=== PATIENT | female | born 1965 | race Caucasian/White ===

== ENCOUNTER 2016-11-10 02:46 | Emergency (ER) | payer OTHER ==
[2016-11-10] MEDS ORDERED: RX INFO: IV CONTRAST WAS GIVEN 1 EACH MISC MISCELLANE PRN (02:48)
[2016-11-10] MEDS ORDERED: SODIUM CHLORIDE 0.9% 1,000 ML IV STA (02:48)
[2016-11-10 03:07] LABS: Glucose,Whole Blood 143 mg/dL (75-99)
[2016-11-10 03:19] LABS: Basophils % (A) 0 %; CH 28.6; CHCM 33.6; Eosinophils # (A) 0.1 k/uL (0-0.7); Eosinophils % (A) 1 %; HCT 32.6 % (34.0-46.0); Luc # (Auto) 0.28; Luc % (Auto) 2; Lymphocytes # (A) 1.3 k/uL (1.0-4.8); Lymphocytes % (A) 10 %; MCH 28.7 pg (25.0-35.0); MCHC 33.6 g/dL (31.0-37.0); MCV 85.4 fL (80.0-100.0); Mean Platelet Volume 6.4; Monocytes # (A) 0.7 k/uL (0-1.0); Monocytes % (A) 5 %; Neutrophils # (A) 11.2 k/uL (1.3-7.7); Neutrophils % (A) 82 %; RBC 3.82 m/uL (3.80-5.40); RDW 13.9 % (11.5-15.5); WBC 13.7 k/uL (3.8-10.6); WBC (Perox) 14.05
[2016-11-10] MEDS ORDERED: ONDANSETRON 4 MG/2 ML VIAL IVP STA ×2 (03:22→04:00)
--- NOTE | 2016-11-10 03:23 | CT ---
EXAM: CT Head Without Intravenous Contrast. CLINICAL HISTORY: Neurological deficits. TECHNIQUE: Axial computed tomography images of the head/brain without intravenous contrast. Coronal and sagittal reformations provided. DOSE INFORMATION: CTDI is 60.30 mGy and DLP is 1217.10 mGy-cm. This CT exam was performed using one or more of the following dose reduction techniques: automated exposure control, adjustment of the mA and/or kV according to patient size, and/or use of iterative reconstruction technique. COMPARISON: No relevant prior studies available. FINDINGS: Brain: No acute intracranial hemorrhage. No evidence of acute territorial infarct. No significant white matter disease. No edema. No mass effect or midline shift. Ventricles: Unremarkable. No ventriculomegaly. Bones/joints: Unremarkable. No acute fracture. Soft tissues: Unremarkable. Sinuses: Unremarkable as visualized. No acute sinusitis. Mastoid air cells: Unremarkable as visualized. No mastoid effusion. IMPRESSION: No evidence of acute intracranial abnormality. Specifically, no acute intracranial hemorrhage or CT evidence of acute territorial infarct.
[2016-11-10 03:30] VITALS: TEMP 97.4
[2016-11-10 03:31] LABS: INR 1.1 (<1.1); Prothrombin Time 11.4 sec (9.0-12.0)
[2016-11-10 03:33] LABS: ALT 31 U/L (9-52); AST 34 U/L (14-36); Alkaline Phosphatase 76 U/L (38-126); Anion Gap 9 mmol/L; Blood Urea Nitrogen 17 mg/dL (7-17); Carbon Dioxide 24 mmol/L (22-30); Chloride 104 mmol/L (98-107); Glucose 148 mg/dL (74-99); Non-African American GFR(MDRD) >60 (>60 ml/min/1.73 sqM); Sodium 137 mmol/L (137-145); Total Bilirubin 0.5 mg/dL (0.2-1.3); Total Protein 6.5 g/dL (6.3-8.2)
[2016-11-10 03:36] LABS: Creatine Kinase 98 U/L (30-135)
--- NOTE | 2016-11-10 03:40 | CT ---
EXAM: CT Angiography Head With Intravenous Contrast. CLINICAL HISTORY: Neurological deficits. TECHNIQUE: Axial computed tomographic angiography images of the head with intravenous contrast using CT angiography protocol. MIP reconstructed images were created and reviewed. Coronal and sagittal reformatted images were created and reviewed. DOSE INFORMATION: CTDI of 7.10, 70.20, 7.30 mGy and DLP of 313.80 mGy-cm (values for carotid CTA examination). This CT exam was performed using one or more of the following dose reduction techniques: automated exposure control, adjustment of the mA and/or kV according to patient size, and/or use of iterative reconstruction technique. COMPARISON: No relevant prior studies available. FINDINGS: Right internal carotid artery: Intracranial segment of the right ICA is patent with no significant stenosis. No aneurysm. Right anterior cerebral artery: Unremarkable. No occlusion or significant stenosis. No aneurysm. Right middle cerebral artery: Unremarkable. No occlusion or significant stenosis. No aneurysm. Right posterior cerebral artery: Unremarkable. No occlusion or significant stenosis. No aneurysm. Right vertebral artery: Unremarkable as visualized. Right vertebral artery is dominant and contributes to the basilar artery. Left internal carotid artery: Intracranial segment of the left ICA is patent with no significant stenosis. No aneurysm. Left anterior cerebral artery: Unremarkable. No occlusion or significant stenosis. No aneurysm. Left middle cerebral artery: Unremarkable. No occlusion or significant stenosis. No aneurysm. Left posterior cerebral artery: Unremarkable. No occlusion or significant stenosis. No aneurysm. Left vertebral artery: Small caliber left vertebral artery. Basilar artery: Unremarkable. No occlusion or significant stenosis. No aneurysm. IMPRESSION: Patent intracranial arteries. No evidence of hemodynamically significant stenosis, occlusion or aneurysm. EXAM: CT Angiography Neck With Intravenous Contrast. CLINICAL HISTORY: Neurological deficits. TECHNIQUE: Axial computed tomographic angiography images of the neck with intravenous contrast using CT angiography protocol. MIP reconstructed images were created and reviewed. Coronal and sagittal reformatted images were created and reviewed. DOSE INFORMATION: CTDI of 7.10, 70.20, 7.30 mGy and DLP of 313.80 mGy-cm (values for carotid CTA examination). This CT exam was performed using one or more of the following dose reduction techniques: automated exposure control, adjustment of the mA and/or kV according to patient size, and/or use of iterative reconstruction technique. COMPARISON: No relevant prior studies available. FINDINGS: Artifacts: Examination is limited due to motion artifact. VASCULATURE: Right common carotid artery: Right common carotid artery is patent without evidence of hemodynamically significant stenosis, occlusion or dissection. Right internal carotid artery: Right internal carotid artery is patent without evidence of hemodynamically significant stenosis, occlusion or dissection.. Right external carotid artery: Unremarkable. No occlusion. Right vertebral artery: Right vertebral artery is dominant. No significant stenosis. No dissection or occlusion. Left common carotid artery: Left common carotid artery is patent without evidence of hemodynamically significant stenosis, occlusion or dissection. Left internal carotid artery: Left internal carotid artery is patent without evidence of hemodynamically significant stenosis, occlusion or dissection. Left external carotid artery: Unremarkable. No occlusion. Left vertebral artery: Left vertebral artery smaller in caliber compared to right. Left vertebral artery is patent. 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 NECK: Bones/joints: No evidence of acute fracture of the cervical spine accounting for limitations due to motion artifact. Soft tissues: Unremarkable as visualized. No mass. CAROTID STENOSIS REFERENCE USING NASCET CRITERIA: % ICA stenosis = (1 - narrowest ICA diameter/diameter of distal cervical ICA) x 100. Mild - <50% stenosis. Moderate - 50-69% stenosis. Severe - 70-94% stenosis. Near occlusion - 95-99% stenosis. Occluded - 100% stenosis. IMPRESSION: 1. Patent common carotid, internal carotid and vertebral arteries in the neck. No evidence of hemodynamically significant stenosis, occlusion or dissection. 2. 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
[2016-11-10 03:42] LABS: Potassium 4.3 mmol/L (3.5-5.1)
[2016-11-10 03:48] LABS: Creatine Kinase MB 0.5 ng/mL (0.0-2.4); Troponin I <0.012 ng/mL (0.000-0.034)
[2016-11-10] MEDS ORDERED: tPA (Alteplase) PER PHARMACY 1 EACH MISC MISCELLANE PRN (04:02)
[2016-11-10] MEDS ORDERED: ALTEPLASE IV STA ×2 (04:05)
[2016-11-10 04:08] VITALS: BP 147/87; PULSE 82; RESP 20
--- NOTE | 2016-11-10 04:20 | ED ---
Neuro HPI - General Chief Complaint: Altered Mental Status Stated Complaint: CVA Symptoms Time Seen by Provider: 11/10/16 02:48 Source: patient, family Mode of arrival: EMS Limitations: altered mental status - History of Present Illness Is the patient presenting with stroke symptoms?: Yes Last Known Well Date: 11/10/16 Last Known Well Time: 00:30 -: hour(s) Initial Comments: This patient is a 51-year-old woman brought by EMS to be evaluated for suspected stroke. The patient is not able to give history, she is somewhat a phasic. Most of the history comes from the patient's . He relates that they had gone to visit with friends, and that a little after midnight, the patient had a seizure. They were with a friend who was a nurse and she told him that this was definitely seizure and they observed the patient. When she began to be more arousable after the seizure, she was not moving her left side and she was not speaking, And therefore they called EMS. The patient has also had a couple of episodes of vomiting. the patient's relates that the patient has history of some sort of migraines and she has had a couple of previous episodes of seizure but never any weakness like tonight. Location: speech, left face, left arm History of same: No Severity: severe Quality: weak Improves With: none Worsens With: none On Anticoagulants: No Context: sudden onset Associated Symptoms: nausea/vomiting, seizures Treatments Prior to Arrival: none - Related Data Home Medications: Home Medications Medication Instructions Recorded Confirmed Unable To Assess [Unable to Assess] 11/10/16 11/10/16 Allergies/Adverse Reactions: Allergies Allergy/AdvReac Type Severity Reaction Status Date / Time Sulfa (Sulfonamide Allergy Rash/Hives Verified 11/10/16 03:30 Antibiotics) Review of Systems ROS Statement: Those systems with pertinent positive or pertinent negative responses have been documented in the HPI. ROS Other: All systems not noted in ROS Statement are negative. Limitations: ROS unobtainable due to patients medical condition Constitutional: Denies: fever Gastrointestinal: Reports: vomiting Neurological: Reports: weakness General Exam Limitations: no limitations General appearance: alert Head exam: Present: atraumatic, normocephalic Eye exam: Present: normal appearance. Absent: scleral icterus, conjunctival injection ENT exam: Present: normal oropharynx, TM's normal bilaterally, other (Left facial droop) Neck exam: Present: normal inspection Respiratory exam: Present: normal lung sounds bilaterally. Absent: respiratory distress, wheezes, rales, rhonchi, stridor Cardiovascular Exam: Present: regular rate, normal rhythm, normal heart sounds. Absent: systolic murmur, diastolic murmur, rubs, gallop GI/Abdominal exam: Present: soft. Absent: distended, tenderness, guarding, rebound, mass Extremities exam: Present: normal inspection, normal capillary refill. Absent: pedal edema, calf tenderness Back exam: Present: normal inspection. Absent: CVA tenderness (R), CVA tenderness (L) Neurological exam: Present: alert, other (Please see the attached stroke scale) Skin exam: Present: warm, dry, intact, normal color. Absent: rash Stroke MDM - Lab Data Result diagrams: 11/10/16 03:08 11/10/16 03:08 Lab Results 11/10/16 11/10/16 11/10/16 Range/Units 03:05 03:08 03:08 WBC 13.7 H (3.8-10.6) k/uL RBC 3.82 (3.80-5.40) m/uL Hgb 11.0 L (11.4-16.0) gm/dL Hct 32.6 L (34.0-46.0) % MCV 85.4 (80.0-100.0) fL MCH 28.7 (25.0-35.0) pg MCHC 33.6 (31.0-37.0) g/dL RDW 13.9 (11.5-15.5) % Plt Count 298 (150-450) k/uL Neutrophils % 82 % Lymphocytes % 10 % Monocytes % 5 % Eosinophils % 1 % Basophils % 0 % Neutrophils # 11.2 H (1.3-7.7) k/uL Lymphocytes # 1.3 (1.0-4.8) k/uL Monocytes # 0.7 (0-1.0) k/uL Eosinophils # 0.1 (0-0.7) k/uL Basophils # 0.0 (0-0.2) k/uL PT (9.0-12.0) sec INR (<1.1) APTT (22.0-30.0) sec Sodium (137-145) mmol/L Potassium (3.5-5.1) mmol/L Chloride (98-107) mmol/L Carbon Dioxide (22-30) mmol/L Anion Gap mmol/L BUN (7-17) mg/dL Creatinine (0.52-1.04) mg/dL Est GFR (MDRD) Af Amer (>60 ml/min/1.73 sqM) Est GFR (MDRD) Non-Af (>60 ml/min/1.73 sqM) Glucose (74-99) mg/dL POC Glucose (mg/dL) 143 H (75-99) mg/dL POC Glu Claims Assistant ID Elis Ramos Calcium (8.4-10.2) mg/dL Total Bilirubin (0.2-1.3) mg/dL AST (14-36) U/L ALT (9-52) U/L Alkaline Phosphatase (38-126) U/L Total Creatine Kinase 98 (30-135) U/L CK-MB (CK-2) 0.5 (0.0-2.4) ng/mL CK-MB (CK-2) Rel Index 0.5 Troponin I <0.012 (0.000-0.034) ng/mL Total Protein (6.3-8.2) g/dL Albumin (3.5-5.0) g/dL 11/10/16 11/10/16 Range/Units 03:08 03:08 WBC (3.8-10.6) k/uL RBC (3.80-5.40) m/uL Hgb (11.4-16.0) gm/dL Hct (34.0-46.0) % MCV (80.0-100.0) fL MCH (25.0-35.0) pg MCHC (31.0-37.0) g/dL RDW (11.5-15.5) % Plt Count (150-450) k/uL Neutrophils % % Lymphocytes % % Monocytes % % Eosinophils % % Basophils % % Neutrophils # (1.3-7.7) k/uL Lymphocytes # (1.0-4.8) k/uL Monocytes # (0-1.0) k/uL Eosinophils # (0-0.7) k/uL Basophils # (0-0.2) k/uL PT 11.4 (9.0-12.0) sec INR 1.1 (<1.1) APTT 21.0 L (22.0-30.0) sec Sodium 137 (137-145) mmol/L Potassium 4.3 (3.5-5.1) mmol/L Chloride 104 (98-107) mmol/L Carbon Dioxide 24 (22-30) mmol/L Anion Gap 9 mmol/L BUN 17 (7-17) mg/dL Creatinine 0.60 (0.52-1.04) mg/dL Est GFR (MDRD) Af Amer >60 (>60 ml/min/1.73 sqM) Est GFR (MDRD) Non-Af >60 (>60 ml/min/1.73 sqM) Glucose 148 H (74-99) mg/dL POC Glucose (mg/dL) (75-99) mg/dL POC Glu Claims Assistant ID Calcium 9.0 (8.4-10.2) mg/dL Total Bilirubin 0.5 (0.2-1.3) mg/dL AST 34 (14-36) U/L ALT 31 (9-52) U/L Alkaline Phosphatase 76 (38-126) U/L Total Creatine Kinase (30-135) U/L CK-MB (CK-2) (0.0-2.4) ng/mL CK-MB (CK-2) Rel Index Troponin I (0.000-0.034) ng/mL Total Protein 6.5 (6.3-8.2) g/dL Albumin 3.7 (3.5-5.0) g/dL - Medical Decision Making This patient is a 51-year-old woman with acute onset of ischemic stroke. The stroke team is activated and treatment as per their recommendations. They did request that she be transferred for further care to the stroke care facility. - EKG Data -: EKG Interpreted by Me EKG shows normal: sinus rhythm, axis (Normal), intervals (Normal), QRS complexes (Normal) Rate: normal (81 bpm) Interpretation: nonspecific ST-T wave changes Past Medical History Additional Past Medical History / Comment(s): CHRON'S DISEASE, MIGRAINES, History of Any Multi-Drug Resistant Organisms: None Reported Additional Past Surgical History / Comment(s): OVARIAN CYSTS LAPROSCOPY Past Psychological History: Depression Smoking Status: Never smoker Past Alcohol Use History: Occasional Past Drug Use History: None Reported Course Vital Signs 11/10/16 11/10/16 11/10/16 03:10 03:19 03:34 Temperature 97.4 F L Pulse Rate 93 64 70 Respiratory 22 18 18 Rate Blood Pressure 146/72 118/64 131/78 O2 Sat by Pulse 96 98 98 Oximetry 11/10/16 11/10/16 03:53 04:07 Temperature Pulse Rate 97 82 Respiratory 18 20 Rate Blood Pressure 158/89 147/87 O2 Sat by Pulse 98 99 Oximetry Critical Care Time Critical Care Time: Yes (40 minutes) Disposition Clinical Impression: Stroke Disposition: OTHER INSTITUTION NOT DEFINED Condition: Serious Referrals: Nonstaff,Physician [Primary Care Provider] - 1-2 days - Out of Hospital Transfer - Req. Specs Out of Hospital Transfer - Requested Specifics: Neurological ICU
--- NOTE | 2016-11-10 04:41 | XR ---
EXAM: XR Chest, 1 View. CLINICAL HISTORY: Altered mental status. TECHNIQUE: Frontal view of the chest. COMPARISON: No relevant prior studies available. FINDINGS: Lungs: Rotated chest. Left basilar opacity. Pulmonary vasculature appears within normal limits. Pleural space: No pneumothorax or large pleural effusion. Heart: Cardiac silhouette size within normal limits. Mediastinum: Evidence of right-sided aortic arch. No mediastinal widening. Bones/joints: Osseous structures appear intact. IMPRESSION: 1. Left basilar opacity, possibly due to atelectasis, infiltrate, prominent epicardial fat or other etiology. Recommend clinical correlation. 2. Evidence of right-sided aortic arch.
== END 2016-11-10 04:48 | disposition other institution (70) ==
LOC: EC 02:46
DX: I63.9 Cerebral infarction, unspecified (principal); Z88.2 Allergy status to sulfonamides
CPT/HCPCS: 99291 ×2; 37195 ×2; 96374 ×2; 96376 ×2; 36415; 93005; 80053; 82550; 82553; 84484; 85025; 85610; 85730; 71010; 70496; 70450; 70498; J2997; Q9967; J2405